=== PATIENT | female | born 1965 | race American Indian/Alaskan Native ===

== ENCOUNTER 2021-10-16 05:56 | Day surgery (SDC) | payer BC ==
[2021-10-11 11:43] LABS: Hematocrit 35.3 % (30.3-42.9); Hemoglobin 11.3 gm/dl (10.1-14.3); Mean Corpuscular HGB Conc 32 % (30-34); Mean Corpuscular Volume 82 fl (79-97); Platelet Count 424 K/mm3 (140-440); Red Blood Count 4.32 M/mm3 (3.65-5.03); Red Cell Distribution Width 13.7 % (13.2-15.2)
--- NOTE | 2021-10-15 21:17 | History and Physical Report ---
History of Present Illness Date of examination: 10/09/21 Date of admission: 10/16/21 Chief complaint: post menopausal bleeding History of present illness: Pt presents with post menopausal menorrhagia after several years of having not period for the last several months. Embx was done but no adequate tissue was obtained. Pt here today for hysteroscopy with D&c to obtain tissue sample. All risk, benefits and alternative were d/w pt and questions were addressed and a nswered. Consents were singed and placed on the chart. 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 Family/Genetic History: none Social history: no significant social history, Medications and Allergies Allergies Allergy/AdvReac Type Severity Reaction Status Date / Time No Known Allergies Allergy Verified 10/13/21 17:32 Home Medications Medication Instructions Recorded Confirmed Last Taken Type No Known Home Medications [No 10/09/21 10/09/21 Unknown History Reported Home Medications] Active Meds: Active Medications Acetaminophen (Acetaminophen 500 Mg Tab) 1,000 mg PO PREOP MISTY Lactated Ringer's (Lactated Ringers) 1,000 mls @ 100 mls/hr IV DIRECT MISTY Stop: 10/16/21 23:59 Review of Systems All systems: negative - Vital Signs Vital signs: Vital Signs Temp Pulse Resp BP Pulse Ox 98 F 79 20 159/75 99 10/11/21 10:30 10/11/21 10:30 10/11/21 10:30 10/11/21 10:30 10/11/21 10:30 Temp Pulse Resp BP Pulse Ox 98 F 79 20 159/75 99 10/11/21 10:30 10/11/21 10:30 10/11/21 10:30 10/11/21 10:30 10/11/21 10:30 - Physical Exam Cardiovascular: Normal S1, Normal S2 Lungs: Positive: Clear to auscultation, Normal air movement Abdomen: Positive: normal appearance, soft, guarding. Negative: distention, tenderness Genitourinary (Female): Positive: other (deferred until EUA) Extremities: Positive: normal Deep Tendon Reflex Grade: Normal +2 Results Result Diagrams: 10/11/21 10:30 All other labs normal. Assessment and Plan - Patient Problems (1) Postmenopausal bleeding Status: Acute Plan to address problem: admit for above stated procedure consents signed and placed on the chart
[~2021-10-16 05:56] MED LIST: SODIUM CHLORIDE 0.9% IRR 1,500 ML BOTTLE IR ONE; SODIUM CHLORIDE 0.9% IRRIG SOLN 2000 ML IR ONE
[2021-10-16] MEDS ORDERED: ceFAZolin/Water 2 GM/20 ML 2 GM/20 ML SYRINGE IV NR (06:00)
[2021-10-16] MEDS ORDERED: LACTATED RINGERS 1,000 ML IV SCH (06:00)
[2021-10-16] MEDS ORDERED: ACETAMINOPHEN 500 MG TAB PO SCH (06:00)
[2021-10-16] MEDS ORDERED: SILVER NITRATE APPLICATOR 1 EA TP ONE ×2 (07:14→09:09)
--- NOTE | 2021-10-16 07:30 | Anesthesia Consultation ---
Anesthesia Consult and Med Hx Date of service: 10/16/21 - Airway Anesthetic Teeth Evaluation: Good, Chipped (b/l upper molars/premolars) ROM Head & Neck: Adequate Mental/Hyoid Distance: Adequate Mallampati Class: Class III Intubation Access Assessment: Possibly Difficult - Pre-Operative Health Status ASA Pre-Surgery Classification: ASA2 Proposed Anesthetic Plan: General - Pulmonary Hx Smoking: No Hx Respiratory Symptoms: No - Cardiovascular System Hx Hypertension: No (BP elevated in preop today; no prior diagnosis HTN) Hx Heart Attack/AMI: No - Central Nervous System CVA: No Hx Back Pain: Yes - Endocrine Hx Renal Disease: No Hx Liver Disease: No Hx Insulin Dependent Diabetes: No Hx Non-Insulin Dependent Diabetes: No Hx Thyroid Disease: No - Hematic Hx Anemia: Yes (abnormal uterine bleeding) - Other Systems Hx Obesity: Yes (BMI 37) - Additional Comments Anesthesia Medical History Comments: No hx anesthetic complications.
--- NOTE | 2021-10-16 07:31 | Anesthesia Day of Surgery ---
Anesthesia Day of Surgery - Day of Surgery Patient Examined: Yes Patient H&P Reviewed: Yes Patient is NPO: Yes
[2021-10-16] MEDS ORDERED: fentaNYL 100 MCG/2 ML INJ ONE (07:50)
[2021-10-16] MEDS ORDERED: propofoL 200 MG/20 ML VIAL IV ONE (07:50)
[2021-10-16] MEDS ORDERED: LIDOCAINE MPF (2%) 20 MG/1 ML VIAL 5 ML ONE (07:50)
[2021-10-16] MEDS ORDERED: ONDANSETRON 4 MG/2 ML INJ ONE (07:50)
[2021-10-16] MEDS ORDERED: SODIUM CHLORIDE 0.9% IRR 1,500 ML BOTTLE IR ONE (08:30)
[2021-10-16] MEDS ORDERED: SODIUM CHLORIDE 0.9% IRRIG SOLN 2000 ML IR ONE (08:30)
--- NOTE | 2021-10-16 08:55 | Operative Report ---
Operative Report Operative Report: Date of procedure: 10/16/2021 Pre-operative diagnosis: Postmenopausal bleeding Post-operative diagnosis: Same Procedure name(s): Hysteroscopy Dilatation and curettage Surgeon: Dr. 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 endotracheal anesthesia EBL:l minimal Urine output: 100 cc of clear urine out prior to the onset of the procedure Fluids: 500 mL; fluid deficit 10 cc Findings: Visualization of the uterine cavity was limited so therefore the uterine fundus was not clearly visualized. There appeared to be thickened endometrial tissue. However the ostia on both sides in the uterine fundus was not clearly visualized. Indications: Patient with a history of menorrhagia monthly after several years of being in menopause. Patient underwent a endometrial biopsy that was not diagnostic. Decision was made to proceed with the above-stated evaluation in order to obtain uterine tissue sample. All risk benefits and alternatives were discussed with the patient. Consents were signed and placed on the chart. Procedure: Patient was taken to the operating room where she was placed under general anesthesia. She was placed in dorsal lithotomy position with legs in Chris stirrups. She was then prepped and draped in sterile fashion. Straight catheterization was done at this time]. The anterior lip of the cervix was grasped with a tenaculum and the uterus was sounded to approximately [9] cm. As at this point that the cervix was dilated to allow the passage of a hysteroscope. Uterine cavity was noted as above. Dilatation and curettage was then performed until a gritty texture was noted on all surfaces of the uterus. Hemostasis was noted to be excellent. Patient was noted to have small bleeding at the puncture burns from the single-tooth tenaculum. Silver nitrate was placed on these areas with excellent hemostasis noted. Patient was taken to the recovery room awake and in stable condition. Patient was given Ancef prior to the onset of the procedure. All laps and needle counts were correct. Patient tolerated the procedure well.
--- NOTE | 2021-10-16 08:56 | Short Stay Summary ---
Short Stay Documentation Date of service: 10/16/21 - History H&P: dictated Past Medical History: No medical history Past Surgical History: No surgical history Social history: no significant social history, - Allergies and Medications Current Medications: Allergies No Known Allergies Allergy (Verified 10/13/21 17:32) Home Medications Medication Instructions Recorded Confirmed Last Taken Type Ibuprofen [Motrin 800 MG tab] 800 mg PO Q8HR PRN #30 tablet 10/16/21 Unknown Rx oxyCODONE /ACETAMINOPHEN [Percocet 1 tab PO Q4HR #5 tab 10/16/21 Unknown Rx 5/325] Active Medications Acetaminophen (Acetaminophen 500 Mg Tab) 1,000 mg PO PREOP MISTY Lactated Ringer's (Lactated Ringers) 1,000 mls @ 100 mls/hr IV DIRECT MISTY Stop: 10/16/21 23:59 Cefazolin Sodium (Ancef/Sterile Water 2 Gm/20 Ml) 2 gm in 20 mls @ 80 mls/hr IV PREOP NR; Protocol Stop: 10/17/21 06:00 - Brief post op/procedure progress note Date of procedure: 10/16/21 Pre-op diagnosis: Postmenopausal bleeding Post-op diagnosis: same Procedure: hysteroscopy Dilatation and curettage Anesthesia: GETA Findings: See operative report Surgeon: ROSA CHACON Estimated blood loss: none Pathology: list Specimen disposition: to lab Condition: stable - Hospital course Hospital course: Patient was admitted for above-stated procedure. Patient underwent procedure that was not complicated. Patient will be discharged home after she had met discharge criteria in the PACU. - Disposition Condition at discharge: Good Disposition: 01 HOME / SELF CARE / HOMELESS - Discharge Diagnoses (1) Postmenopausal bleeding Status: Acute Short Stay Discharge Plan Activity: no restrictions Weight Bearing Status: Weight Bear as Tolerated Diet: regular Follow up with: PRIMARY CARE, [Primary Care Provider] - 7 Days Prescriptions: Ibuprofen [Motrin 800 MG tab] 800 mg PO Q8HR PRN #30 tablet PRN Reason: Pain, Moderate (4-6) oxyCODONE /ACETAMINOPHEN [Percocet 5/325] 1 tab PO Q4HR #5 tab
[2021-10-16] MEDS ORDERED: dexAMETHasone 20 MG/5 ML VIAL ONE (08:57)
[2021-10-16] MEDS ORDERED: KETOROLAC 30 MG/1 ML INJ ONE (08:57)
[2021-10-16 09:58] VITALS: BP 148/87
[2021-10-16] MEDS ORDERED: oxyCODONE /ACETAMINOPHEN 5-325MG TAB PO PRN (10:00)
--- NOTE | 2021-10-16 10:28 | Post Anesthesia Evaluation ---
- Post Anesthesia Evaluation Patient Participated: Yes Airway Patent: Yes Stable Respiratory Function: Yes Nausea/Vomiting: No Temp > 96.8F: Yes Pain Manageable: Yes Adequeate Hydration: Yes Anesthesia Complications: No
== END 2021-10-16 10:15 | disposition home or self-care (01) ==
LOC: OR 05:56
PROVIDERS: ATTEND Obstetrics & Gynecology
DX: N95.0 Postmenopausal bleeding (principal); E78.00 Pure hypercholesterolemia, unspecified; K21.9 Gastro-esophageal reflux disease without esophagitis; M19.90 Unspecified osteoarthritis, unspecified site; D64.9 Anemia, unspecified; Z98.890 Other specified postprocedural states; Z20.822 Contact with and (suspected) exposure to COVID-19; Z79.899 Other long term (current) drug therapy; Z98.51 Tubal ligation status
CPT/HCPCS: 36415; 58558; 85027; 88305; J0690; J1100; J1885; J2405; J2704; J3010; J3490; J7120; U0003